=== PATIENT | female | born 1930 | race Caucasian/White ===

== ENCOUNTER 2017-08-08 05:59 | Emergency (ER) | payer OTHER, MEDICAID ==
[~2017-08-08] VITALS: Ht 162.6 cm; Wt 65.3 kg
[~2017-08-08 05:59] MED LIST: ALPR0.254 PO; BRIM0.1S3 OP; PRED1SOL OP; TRAV0.00 OP
[2017-08-08 08:09] LABS: Basophils # (auto) 0.1 uL; Basophils % (auto) 0.9 % (0.0-2.0); Eosinophils # (auto) 0.2 uL; Eosinophils % (auto) 2.6 % (0.0-7.0); Hemoglobin 12.9 g/dL (12.2-16.2); Lymphocytes # (auto) 2.4 uL; Lymphocytes % (auto) 34.7 % (10.0-50.0); Mean Corpuscular Hemoglobin 29.6 pg (28.0-32.0); Mean Corpuscular Hgb Conc. 33.1 g/dL (32.0-36.0); Mean Corpuscular Volume 89.3 fL (80.0-100.0); Monocytes # (auto) 0.8 uL; Monocytes % (auto) 11.7 % (0.0-12.0); Neutrophils # (auto) 3.4 uL; Neutrophils % (auto) 50.1 % (37.0-80.0); Nucleated Red Blood Cells % 0.1 %; Platelet Count (auto) 239 10^3/uL (140-450); Red Blood Cells 4.37 10^6/uL (4.0-5.20); Red Cell Distribution Width 13.9 % (11.8-14.3); White Blood Cell 6.9 10^3/uL (4.4-10.8)
[2017-08-08 08:30] LABS: Albumin 3.8 g/dL (3.4-5.0); BUN/Creatinine Ratio 11.1; Bilirubin, Total 0.4 mg/dL (0.2-1.0); Calcium 8.9 mg/dL (8.5-10.1); Potassium 3.8 mmol/L (3.5-5.1)
[2017-08-08] MEDS ORDERED: SODIUM CHLORIDE 0.9% 1,000 ML IV ONE (09:13)
[2017-08-08] MEDS ORDERED: PROMETHAZINE HCL 25 MG/ML 1ML IV PRN (09:15)
[2017-08-08 09:53] LABS: Magnesium 2.2 mg/dL (1.6-2.6)
[2017-08-08] MEDS: MORPHINE SULFATE 4 MG/ML SYR/VIAL IV PRN ×3 (09:54→11:01)
[2017-08-08 10:05] LABS: Urine Bacteria FEW /hpf (None Seen); Urine Blood 1+ /uL (Negative); Urine Specific Gravity 1.006 (1.001-1.035); Urine WBC 132 /hpf (0 - 5); Urine WBC Clumps PRESENT /hpf (None Seen)
[2017-08-08] MEDS ORDERED: cefTRIAXone 1GM/10ml IVPUSH 10 ML IV ONE (10:30)
[2017-08-08 11:01] VITALS: BP 153/80
== END 2017-08-08 12:04 | disposition home or self-care (01) ==
LOC: ER 05:59
DX: N39.0 Urinary tract infection, site not specified (principal); G89.29 Other chronic pain; M54.9 Dorsalgia, unspecified; R19.7 Diarrhea, unspecified; R42 Dizziness and giddiness; Z90.49 Acquired absence of other specified parts of digestive tract; Z90.710 Acquired absence of both cervix and uterus
CPT/HCPCS: 36415; 71046; 74176; 80053; 81001; 83605; 83690; 83735; 84443; 85025; 93005; 96361; 96374; 96375; 99285; J2270; J2550; J7030

== ENCOUNTER 2017-08-14 16:10 | Inpatient (IN) | payer OTHER, MEDICAID ==
[~2017-08-14] VITALS: Ht 175.3 cm; Wt 77.1 kg
[2017-08-14 16:46] LABS: Basophils # (auto) 0.1 uL; Basophils % (auto) 0.9 % (0.0-2.0); Eosinophils # (auto) 0.2 uL; Eosinophils % (auto) 2.8 % (0.0-7.0); Hematocrit 39.1 % (36.0-46.0); Hemoglobin 12.9 g/dL (12.2-16.2); Lymphocytes % (auto) 30.6 % (10.0-50.0); Mean Corpuscular Hemoglobin 29.3 pg (28.0-32.0); Mean Corpuscular Volume 88.6 fL (80.0-100.0); Monocytes # (auto) 0.7 uL; Monocytes % (auto) 11.5 % (0.0-12.0); Neutrophils # (auto) 3.5 uL; Neutrophils % (auto) 54.2 % (37.0-80.0); Nucleated Red Blood Cells % 0.1 %; Platelet Count (auto) 211 10^3/uL (140-450); Red Blood Cells 4.41 10^6/uL (4.0-5.20); Red Cell Distribution Width 13.9 % (11.8-14.3); White Blood Cell 6.5 10^3/uL (4.4-10.8)
[2017-08-14 17:12] LABS: Albumin 3.7 g/dL (3.4-5.0); BUN/Creatinine Ratio 11.5; Bilirubin, Total 0.5 mg/dL (0.2-1.0); Calcium 8.7 mg/dL (8.5-10.1); Potassium 3.5 mmol/L (3.5-5.1); Total Protein 7.8 g/dL (6.4-8.2)
[2017-08-14] MEDS ORDERED: SODIUM CHLORIDE 0.9% 1,000 ML IVB ONE (18:36)
[2017-08-14] MEDS ORDERED: ONDANSETRON HCL 4 MG/2 ML VIAL IV ONE (18:45)
[2017-08-14] MEDS ORDERED: MORPHINE SULFATE 4 MG/ML SYR/VIAL IV ONE (18:45)
[2017-08-14 19:23] LABS: Urine Bacteria NONE SEEN /hpf (None Seen); Urine Blood TRACE /uL (Negative); Urine Specific Gravity 1.007 (1.001-1.035); Urine WBC 17 /hpf (0 - 5)
[2017-08-14 19:44] LABS: INR 1.01 (0.9-1.15); Partial Thromboplastin Time 28.5 sec (22.64-33.71)
[2017-08-14] MEDS ORDERED: ALPRAZolam 0.5 MG TAB PO ONE (20:00)
[2017-08-14] MEDS ORDERED: cefTRIAXone 1GM/10ml IVPUSH 10 ML IV ONE (20:45)
[2017-08-14] MEDS ORDERED: cloNIDine HCL 0.1 MG TAB PO PRN (20:45)
[2017-08-14] MEDS ORDERED: ALPRAZolam 0.25 MG TAB PO PRN (20:45)
[2017-08-14] MEDS ORDERED: TEMAZEPAM 15 MG CAP PO PRN (20:45)
[2017-08-14] MEDS ORDERED: ACETAMINOPHEN 325 MG TAB PO PRN (20:45)
[2017-08-14] MEDS: SODIUM CHLORIDE 0.9% 1,000 ML IV SCH (21:16)
[2017-08-14] MEDS ORDERED: POLYETHYLENE GLYCOL 17 GM PWDR PO ONE (21:30)
[2017-08-14 21:40] VITALS: BP 161/86
[2017-08-14] MEDS: DOCUSATE SOD 100 MG CAP PO SCH (22:46)
[2017-08-15] VITALS (7 sets, daily range): BP systolic 124–178; BP diastolic 59–75
[2017-08-15] MEDS: MORPHINE SULFATE 4 MG/ML SYR/VIAL IV PRN ×2 (00:19→11:25)
[2017-08-15] MEDS: ONDANSETRON HCL 4 MG/2 ML VIAL IV PRN (00:20)
[2017-08-15] MEDS ORDERED: HYDR-3682 PO (01:17)
[2017-08-15] MEDS ORDERED: CEPH250C2 PO (01:17)
[2017-08-15 05:31] LABS: Basophils # (auto) 0 uL; Basophils % (auto) 0.6 % (0.0-2.0); Eosinophils # (auto) 0.3 uL; Eosinophils % (auto) 3.7 % (0.0-7.0); Hemoglobin 12.3 g/dL (12.2-16.2); Lymphocytes % (auto) 29.4 % (10.0-50.0); Mean Corpuscular Hemoglobin 29.9 pg (28.0-32.0); Mean Corpuscular Hgb Conc. 33.4 g/dL (32.0-36.0); Mean Corpuscular Volume 89.6 fL (80.0-100.0); Monocytes # (auto) 0.8 uL; Neutrophils # (auto) 3.7 uL; Neutrophils % (auto) 54.3 % (37.0-80.0); Nucleated Red Blood Cells % 0.1 %; Platelet Count (auto) 209 10^3/uL (140-450); Red Blood Cells 4.13 10^6/uL (4.0-5.20); Red Cell Distribution Width 14.2 % (11.8-14.3); White Blood Cell 6.8 10^3/uL (4.4-10.8)
[2017-08-15 05:39] LABS: Albumin 3.1 g/dL (3.4-5.0); Calcium 8.3 mg/dL (8.5-10.1); Potassium 3.3 mmol/L (3.5-5.1)
[2017-08-15 05:42] LABS: Bilirubin, Total 0.5 mg/dL (0.2-1.0); Total Protein 6.9 g/dL (6.4-8.2)
[2017-08-15] MEDS: ENOXAPARIN SOD 40 MG/0.4 ML SYRINGE SC SCH (10:17)
[2017-08-15] MEDS: DOCUSATE SOD 100 MG CAP PO SCH ×2 (10:17→22:34)
[2017-08-15] MEDS: SODIUM CHLORIDE 0.9% 1,000 ML IV SCH ×2 (10:18→23:25)
[2017-08-15] MEDS ORDERED: cefTRIAXone 1GM/10ml IVPUSH 10 ML IV SCH (22:00)
[2017-08-16 05:31] VITALS: BP 165/81
[2017-08-16 09:00] VITALS: BP 138/57
[2017-08-16] MEDS ORDERED: MILK OF MAGNESIA 30ML SUSP PO ONE (09:45)
[2017-08-16] MEDS ORDERED: LORazepam 2MG/ML-1ML VIAL IV ONE (09:45)
[2017-08-16] MEDS: DOCUSATE SOD 100 MG CAP PO SCH (10:13)
[2017-08-16] MEDS: ENOXAPARIN SOD 40 MG/0.4 ML SYRINGE SC SCH (10:13)
[2017-08-16] MEDS: ONDANSETRON HCL 4 MG/2 ML VIAL IV PRN (10:13)
[2017-08-16 13:00] VITALS: BP 116/57
[2017-08-16 13:44] VITALS: BP 138/57
== END 2017-08-16 16:40 | disposition home or self-care (01) | DRG 690 ==
LOC: ER 16:10 → EDBD 16:10 → WEST WING 16:11
PROVIDERS: ADMIT Nurse Practitioner; ATTEND Internal Medicine
DX: N39.0 Urinary tract infection, site not specified (principal); M06.9 Rheumatoid arthritis, unspecified; F41.9 Anxiety disorder, unspecified; I10 Essential (primary) hypertension; K59.00 Constipation, unspecified; M19.90 Unspecified osteoarthritis, unspecified site; K57.90 Diverticulosis of intestine, part unspecified, without perforation or abscess without bleeding; Z87.440 Personal history of urinary (tract) infections; Z90.710 Acquired absence of both cervix and uterus; Z88.6 Allergy status to analgesic agent; Z88.5 Allergy status to narcotic agent; Z88.2 Allergy status to sulfonamides; Z90.49 Acquired absence of other specified parts of digestive tract
CPT/HCPCS: 36415; 71045; 74176; 80053; 81001; 83735; 85025; 85610; 85730; 93005; 94761; 96361; 96374; 96375; J2405

== ENCOUNTER 2017-09-08 06:48 | Emergency (ER) | payer OTHER, MEDICAID ==
[~2017-09-08] VITALS: Ht 175.3 cm; Wt 72.6 kg
[~2017-09-08 06:48] MED LIST changes: +CEPH250C2 PO; +HYDR-3682 PO
[2017-09-08 08:34] VITALS: BP 169/66
[2017-09-08] MEDS ORDERED: SODIUM CHLORIDE 0.9% 1,000 ML IV ONE (08:39)
[2017-09-08] MEDS ORDERED: PROMETHAZINE HCL 25 MG/ML 1ML IV PRN (08:45)
[2017-09-08] MEDS ORDERED: MORPHINE SULFATE 8mg/ml INJ SDV IV ONE (08:45)
[2017-09-08] MEDS: MORPHINE SULF INJ 2 MG/ML SYRINGE 1ML IV ONE ×2 (09:00→10:04)
[2017-09-08 09:15] LABS: Urine Bacteria NONE SEEN /hpf (None Seen); Urine Blood TRACE /uL (Negative); Urine Specific Gravity 1.008 (1.001-1.035); Urine WBC 23 /hpf (0 - 5)
[2017-09-08 09:56] LABS: Basophils # (auto) 0.1 uL; Eosinophils # (auto) 0 uL; Eosinophils % (auto) 0.5 % (0.0-7.0); Hematocrit 40.1 % (36.0-46.0); Hemoglobin 12.8 g/dL (12.2-16.2); Lymphocytes # (auto) 1.1 uL; Mean Corpuscular Hemoglobin 29.2 pg (28.0-32.0); Mean Corpuscular Volume 91.5 fL (80.0-100.0); Monocytes # (auto) 0.5 uL; Monocytes % (auto) 7.5 % (0.0-12.0); Neutrophils # (auto) 5.1 uL; Nucleated Red Blood Cells % 0.1 %; Platelet Count (auto) 214 10^3/uL (140-450); Red Blood Cells 4.38 10^6/uL (4.0-5.20); Red Cell Distribution Width 14.4 % (11.8-14.3); White Blood Cell 6.8 10^3/uL (4.4-10.8)
[2017-09-08 10:07] LABS: Albumin 3.4 g/dL (3.4-5.0); BUN/Creatinine Ratio 17.6; Bilirubin, Total 0.5 mg/dL (0.2-1.0); Calcium 8.7 mg/dL (8.5-10.1); Magnesium 2.6 mg/dL (1.6-2.6); Potassium 3.9 mmol/L (3.5-5.1); Total Protein 7.4 g/dL (6.4-8.2)
[2017-09-08] MEDS ORDERED: cefTRIAXone 1GM/10ml IVPUSH 10 ML IV ONE (12:00)
[2017-09-08] MEDS ORDERED: ALPRAZolam 0.5 MG TAB PO ONE (14:15)
== END 2017-09-08 17:19 | disposition home or self-care (01) ==
LOC: EDBD 06:48 → ER 06:49
DX: K57.30 Diverticulosis of large intestine without perforation or abscess without bleeding (principal); N39.0 Urinary tract infection, site not specified; I10 Essential (primary) hypertension; E03.9 Hypothyroidism, unspecified; M19.90 Unspecified osteoarthritis, unspecified site; Z90.49 Acquired absence of other specified parts of digestive tract; Z90.710 Acquired absence of both cervix and uterus; Z90.89 Acquired absence of other organs; Z88.2 Allergy status to sulfonamides; Z88.6 Allergy status to analgesic agent
CPT/HCPCS: 36415; 71045; 74176; 80053; 81001; 83690; 83735; 84443; 84484; 85025; 93005; 96361; 96374; 96375; 99285; J2270; J2550

== ENCOUNTER 2017-09-19 05:22 | Inpatient (IN) | payer OTHER, MEDICAID ==
[~2017-09-19] VITALS: Ht 160 cm; Wt 75.9 kg
[2017-09-19] MEDS ORDERED: ONDANSETRON HCL 4 MG/2 ML VIAL IV ONE (07:45)
[2017-09-19] MEDS ORDERED: LORazepam 2MG/ML-1ML VIAL IV ONE (07:45)
[2017-09-19 08:42] LABS: Basophils # (auto) 0 uL; Basophils % (auto) 0.5 % (0.0-2.0); Eosinophils # (auto) 0 uL; Eosinophils % (auto) 0.7 % (0.0-7.0); Hemoglobin 12.1 g/dL (12.2-16.2); Lymphocytes # (auto) 0.9 uL; Lymphocytes % (auto) 12.8 % (10.0-50.0); Mean Corpuscular Hemoglobin 29.1 pg (28.0-32.0); Mean Corpuscular Hgb Conc. 32.8 g/dL (32.0-36.0); Mean Corpuscular Volume 88.9 fL (80.0-100.0); Monocytes # (auto) 0.5 uL; Monocytes % (auto) 6.8 % (0.0-12.0); Neutrophils # (auto) 5.4 uL; Neutrophils % (auto) 79.2 % (37.0-80.0); Platelet Count (auto) 202 10^3/uL (140-450); Red Blood Cells 4.16 10^6/uL (4.0-5.20); Red Cell Distribution Width 14.2 % (11.8-14.3); White Blood Cell 6.8 10^3/uL (4.4-10.8)
[2017-09-19 08:48] LABS: Calcium 8.2 mg/dL (8.5-10.1); Potassium 3.8 mmol/L (3.5-5.1)
[2017-09-19 08:51] LABS: Albumin 3.5 g/dL (3.4-5.0); BUN/Creatinine Ratio 25.9; Magnesium 2.3 mg/dL (1.6-2.6)
[2017-09-19 08:56] LABS: Bilirubin, Total 0.6 mg/dL (0.2-1.0); Total Protein 7.7 g/dL (6.4-8.2)
[2017-09-19] MEDS ORDERED: LORazepam 0.5 MG TAB PO PRN (10:00)
[2017-09-19] MEDS ORDERED: ACETAMINOPHEN 500 MG TAB PO PRN (10:00)
[2017-09-19] MEDS ORDERED: NITROGLYCERIN 0.4 MG SL TAB SL PRN (10:00)
[2017-09-19] MEDS ORDERED: MORPHINE SULF(PF) 0.5MG/ML 10ML VIAL IV PRN (10:00)
[2017-09-19] MEDS ORDERED: TEMAZEPAM 15 MG CAP PO PRN (10:00)
[2017-09-19] MEDS ORDERED: cefTRIAXone 1GM/10ml IVPUSH 10 ML IV ONE (10:00)
[2017-09-19] MEDS ORDERED: HYDROcodone-ACET 5/325MG TAB PO PRN (10:00)
[2017-09-19] MEDS ORDERED: NALBUPHINE HCL 10 MG/1ml INJECTION IM PRN (10:00)
[2017-09-19] MEDS ORDERED: MOXIFLOXACIN OP SCH (10:00)
[2017-09-19] MEDS ORDERED: PREDNISOLONE OP SCH (10:00)
[2017-09-19] MEDS: SODIUM CHLORIDE 0.9% 1,000 ML IV SCH ×2 (10:30→21:58)
[2017-09-19] MEDS: hydrOXYzine 25 MG TAB or CAP PO SCH ×2 (10:30→22:02)
[2017-09-19] MEDS: PANTOPRAZOLE 40 MG TAB PO SCH (10:30)
[2017-09-19] MEDS: ALPRAZolam 0.25 MG TAB PO SCH ×2 (10:30→22:02)
[2017-09-19] MEDS: CARVEDILOL 3.125 MG TAB PO SCH ×2 (10:30→22:01)
[2017-09-19] MEDS: PROMETHAZINE HCL 25 MG/ML 1ML IV PRN (18:09)
[2017-09-19 21:30] VITALS: BP 150/61
[2017-09-19 22:00] VITALS: BP 150/61
[2017-09-20 04:32] LABS: Urine Bacteria FEW /hpf (None Seen); Urine Blood 2+ /uL (Negative); Urine Mucus FEW (None Seen); Urine Specific Gravity 1.012 (1.001-1.035); Urine WBC 8 /hpf (0 - 5)
[2017-09-20 04:44] LABS: Alcohol, Urine < 3.0 mg/dL (0-5); Amphetamine Screen, Urine NEGATIVE (NEGATIVE); Barbiturate Scree,Urine NEGATIVE (NEGATIVE); Benzodiazephine Screen, Urine NEGATIVE (NEGATIVE); Cannabinoid Screen, Urine POSITIVE (NEGATIVE); Cocaine Screen, Urine NEGATIVE (NEGATIVE); Opiate Scree,Urine NEGATIVE (NEGATIVE); Phencyclidine Screen, Urine NEGATIVE (NEGATIVE)
[2017-09-20] MEDS: SODIUM CHLORIDE 0.9% 1,000 ML IV SCH ×2 (04:46→17:22)
[2017-09-20] MEDS: PROMETHAZINE HCL 25 MG/ML 1ML IV PRN ×2 (04:46→20:57)
[2017-09-20 05:00] VITALS: BP 160/74
[2017-09-20 07:22] LABS: Basophils # (auto) 0 uL; Basophils % (auto) 0.6 % (0.0-2.0); Eosinophils # (auto) 0.2 uL; Eosinophils % (auto) 3.3 % (0.0-7.0); Hematocrit 34.7 % (36.0-46.0); Hemoglobin 11.7 g/dL (12.2-16.2); Lymphocytes # (auto) 1.2 uL; Lymphocytes % (auto) 21.6 % (10.0-50.0); Mean Corpuscular Hemoglobin 29.9 pg (28.0-32.0); Mean Corpuscular Hgb Conc. 33.6 g/dL (32.0-36.0); Monocytes # (auto) 0.4 uL; Monocytes % (auto) 7.5 % (0.0-12.0); Neutrophils # (auto) 3.7 uL; Platelet Count (auto) 184 10^3/uL (140-450); Red Cell Distribution Width 14.5 % (11.8-14.3); White Blood Cell 5.6 10^3/uL (4.4-10.8)
[2017-09-20 08:00] VITALS: BP 152/65
[2017-09-20 08:03] LABS: Albumin 3.2 g/dL (3.4-5.0); Bilirubin, Total 0.6 mg/dL (0.2-1.0); Calcium 8.1 mg/dL (8.5-10.1)
[2017-09-20] MEDS: cefTRIAXone 1GM/10ml IVPUSH 10 ML IV SCH (09:19)
[2017-09-20] MEDS: CARVEDILOL 3.125 MG TAB PO SCH ×2 (09:20→21:51)
[2017-09-20] MEDS: hydrOXYzine 25 MG TAB or CAP PO SCH ×2 (09:20→21:51)
[2017-09-20] MEDS: PANTOPRAZOLE 40 MG TAB PO SCH (09:21)
[2017-09-20] MEDS: ALPRAZolam 0.25 MG TAB PO SCH ×2 (09:21→21:51)
[2017-09-20 12:00] VITALS: BP 153/72
[2017-09-20] MEDS: metroNIDAZOLE 500 MG TAB PO SCH ×2 (17:27→21:51)
[2017-09-20 22:00] VITALS: BP 180/75
[2017-09-21] MEDS: SODIUM CHLORIDE 0.9% 1,000 ML IV SCH ×2 (01:52→11:57)
[2017-09-21] MEDS: PROMETHAZINE HCL 25 MG/ML 1ML IV PRN ×2 (02:29→15:38)
[2017-09-21 05:24] VITALS: BP 158/64
[2017-09-21] MEDS: metroNIDAZOLE 500 MG TAB PO SCH ×3 (06:16→21:41)
[2017-09-21 07:23] LABS: Basophils # (auto) 0 uL; Basophils % (auto) 0.4 % (0.0-2.0); Eosinophils # (auto) 0.1 uL; Eosinophils % (auto) 1.9 % (0.0-7.0); Hematocrit 34.4 % (36.0-46.0); Hemoglobin 11.6 g/dL (12.2-16.2); Lymphocytes # (auto) 1.6 uL; Lymphocytes % (auto) 22.7 % (10.0-50.0); Mean Corpuscular Hemoglobin 29.9 pg (28.0-32.0); Mean Corpuscular Hgb Conc. 33.6 g/dL (32.0-36.0); Mean Corpuscular Volume 88.8 fL (80.0-100.0); Monocytes # (auto) 0.8 uL; Monocytes % (auto) 11.5 % (0.0-12.0); Neutrophils # (auto) 4.4 uL; Neutrophils % (auto) 63.5 % (37.0-80.0); Platelet Count (auto) 181 10^3/uL (140-450); Red Blood Cells 3.88 10^6/uL (4.0-5.20); Red Cell Distribution Width 14.1 % (11.8-14.3); White Blood Cell 6.9 10^3/uL (4.4-10.8)
[2017-09-21 07:40] LABS: BUN/Creatinine Ratio 12.5; Calcium 8.2 mg/dL (8.5-10.1); Magnesium 2.3 mg/dL (1.6-2.6); Phosphorus 2.5 mg/dL (2.5-4.90); Potassium 3.6 mmol/L (3.5-5.1)
[2017-09-21] MEDS: CARVEDILOL 3.125 MG TAB PO SCH ×2 (09:04→21:42)
[2017-09-21] MEDS: cefTRIAXone 1GM/10ml IVPUSH 10 ML IV SCH (09:04)
[2017-09-21] MEDS: PANTOPRAZOLE 40 MG TAB PO SCH (09:05)
[2017-09-21] MEDS: hydrOXYzine 25 MG TAB or CAP PO SCH (09:05)
[2017-09-21] MEDS: ALPRAZolam 0.25 MG TAB PO SCH ×2 (09:05→21:42)
[2017-09-21 09:18] VITALS: BP 156/74
[2017-09-21 12:29] VITALS: BP 161/71
[2017-09-21 17:24] VITALS: BP 158/73
[2017-09-21 20:00] VITALS: BP 162/79
[2017-09-21] MEDS: HYOSCYAMINE SULF 0.125 MG TAB PO SCH (21:41)
[2017-09-21 22:00] VITALS: BP 162/79
[2017-09-22] VITALS (7 sets, daily range): BP systolic 141–168; BP diastolic 58–85
[2017-09-22] MEDS: metroNIDAZOLE 500 MG TAB PO SCH ×3 (06:07→18:00)
[2017-09-22] MEDS: HYOSCYAMINE SULF 0.125 MG TAB PO SCH ×3 (06:07→21:50)
[2017-09-22 06:47] LABS: Basophils # (auto) 0 uL; Basophils % (auto) 0.7 % (0.0-2.0); Eosinophils # (auto) 0.2 uL; Eosinophils % (auto) 2.5 % (0.0-7.0); Hematocrit 36.8 % (36.0-46.0); Hemoglobin 12.2 g/dL (12.2-16.2); Lymphocytes # (auto) 1.3 uL; Lymphocytes % (auto) 18.5 % (10.0-50.0); Mean Corpuscular Hemoglobin 29.2 pg (28.0-32.0); Mean Corpuscular Hgb Conc. 33.3 g/dL (32.0-36.0); Mean Corpuscular Volume 87.7 fL (80.0-100.0); Monocytes # (auto) 0.8 uL; Monocytes % (auto) 10.6 % (0.0-12.0); Neutrophils # (auto) 4.9 uL; Neutrophils % (auto) 67.7 % (37.0-80.0); Platelet Count (auto) 192 10^3/uL (140-450); Red Blood Cells 4.19 10^6/uL (4.0-5.20); Red Cell Distribution Width 13.5 % (11.8-14.3); White Blood Cell 7.2 10^3/uL (4.4-10.8)
[2017-09-22] MEDS: CARVEDILOL 3.125 MG TAB PO SCH (08:24)
[2017-09-22] MEDS: PANTOPRAZOLE 40 MG TAB PO SCH (09:52)
[2017-09-22] MEDS: cefTRIAXone 1GM/10ml IVPUSH 10 ML IV SCH (09:52)
[2017-09-22] MEDS: ALPRAZolam 0.25 MG TAB PO SCH ×2 (09:52→21:51)
[2017-09-22] MEDS ORDERED: amLODIPine BESYLATE 5 MG TAB PO ONE (10:00)
[2017-09-22] MEDS ORDERED: CARVEDILOL 3.125 MG TAB PO SCH (22:00)
== END 2017-09-22 23:45 | DRG 281 ==
LOC: ER 05:22 → EDBD 05:22 → TELE 05:23 → TELE-EAST 20:50
PROVIDERS: ADMIT Internal Medicine; ATTEND Internal Medicine
DX: I21.4 Non-ST elevation (NSTEMI) myocardial infarction (principal); N39.0 Urinary tract infection, site not specified; A04.72 Enterocolitis due to Clostridium difficile, not specified as recurrent; N13.30 Unspecified hydronephrosis; K57.90 Diverticulosis of intestine, part unspecified, without perforation or abscess without bleeding; F41.9 Anxiety disorder, unspecified; M19.90 Unspecified osteoarthritis, unspecified site; I34.0 Nonrheumatic mitral (valve) insufficiency; I25.10 Atherosclerotic heart disease of native coronary artery without angina pectoris; N32.89 Other specified disorders of bladder; Z88.6 Allergy status to analgesic agent; Z88.2 Allergy status to sulfonamides; Z90.89 Acquired absence of other organs; Z90.49 Acquired absence of other specified parts of digestive tract; Z90.710 Acquired absence of both cervix and uterus; Z82.49 Family history of ischemic heart disease and other diseases of the circulatory system; Z88.5 Allergy status to narcotic agent
CPT/HCPCS: 36415; 51702; 74176; 76775; 80048; 80053; 80307; 81001; 82150; 82270; 82550; 83690; 83735; 83880; 84100; 84443; 84484; 85025; 85048; 85652; 87045; 87086; 87177; 87493; 87899; 93005; 93306; 96361; 96374; 96375; J2405